=== PATIENT | female | born 1965 | race African-American/Black ===

== ENCOUNTER 2017-05-01 21:20 | Observation (INO) | payer BC ==
[2017-05-01] MEDS ORDERED: Adenosine 6 MG/2 ML VIAL ONE ×3 (21:32→21:41)
[2017-05-01 22:03] LABS: #Basophils 0.1 thou/uL (0.0-0.2); #Eosinphils 0.2 thou/uL (0.0-0.7); #Lymphocytes 4.6 thou/uL (1.20-3.40); #Monocytes 0.8 thou/uL (0.11-0.59); #Neutrophils 4.8 thou/uL (1.40-6.50); %Basophils 1.1 % (0.0-1.0); %Eosinophils 1.9 % (0.0-10.0); %Lymphocytes 43.9 % (21.0-51.0); %Monocytes 7.2 % (0.0-10.0); %Neutrophils 45.8 % (42.0-75.0); Hemoglobin 14.8 g/dL (12.0-16.0); Mean Corpuscular HGB CONC 34.1 g/dL (32.0-36.0); Mean Corpuscular Hemoglobin 32.7 pg (27.0-31.0); Mean Corpuscular Volume 95.8 fl (81.0-99.0); Mean Platelet Volume 7.9 fL (7.4-10.4); Platelet Count 212 thou/uL (130-400); RBC Distribution Width 12.8 % (11.5-14.5); Red Blood Cell (RBC) Count 4.53 mill/uL (4.20-5.40); White Blood Cell (WBC) Count 10.5 thou/uL (4.8-10.8)
--- NOTE | 2017-05-01 22:05 | RAD ---
PORTABLE UPRIGHT FRONTAL CHEST RADIOGRAPH 05/01/17 COMPARISON: 11/11/15. HISTORY: Chest pain, arrhythmia. FINDINGS: No pneumothorax or pleural fluid. No focal consolidation or alveolar edema. Heart and mediastinal contours are unremarkable. There is mild elevation of the left hemidiaphragm. IMPRESSION: No acute findings. POS: [facility]
[2017-05-01 22:24] LABS: ALT (SGPT) 19 U/L (8-55); AST (SGOT) 27 U/L (5-34); Albumin 4.5 g/dL (3.5-5.0); Alkaline Phosphatase 89 U/L (40-150); Anion Gap 16 mmol/L (10-20); BUN (Urea Nitrogen) 24 mg/dL (9.8-20.1); Bilirubin, Total 0.3 mg/dL (0.2-1.2); CK (CPK) 91 U/L (29-168); Calc. Creatinine Clearance 0 mL/min (70-130); Calcium 9.8 mg/dL (7.8-10.44); Carbon Dioxide 24 mmol/L (22-29); Chloride 102 mmol/L (98-107); Estimated GFR-MDRD 84; Globulin 3.4 g/dL (2.4-3.5); Glucose 124 mg/dL (70-105); Protein, Total 7.9 g/dL (6.0-8.3); Sodium 139 mmol/L (136-145)
[2017-05-01 22:27] LABS: CKMB 1.6 ng/mL (0-6.6); Troponin I Less than 0.010 ng/mL (< 0.028)
[2017-05-01 22:30] LABS: Potassium 2.9 mmol/L (3.5-5.1)
[2017-05-01] MEDS ORDERED: Potassium Chloride 20 MEQ TAB ONE (23:19)
[2017-05-02] MEDS ORDERED: Ondansetron HCl/PF 4 MG/2 ML Vial IVP PRN ×2 (00:32→08:12)
[2017-05-02] MEDS ORDERED: Ondansetron ODT 4 MG TAB SL PRN (00:32)
[2017-05-02 00:52] VITALS: BMI 29.8
[2017-05-02 01:15] LABS: Troponin I 0.037 ng/mL (< 0.028)
[2017-05-02 04:29] LABS: Troponin I 0.025 ng/mL (< 0.028)
[2017-05-02] MEDS ORDERED: hydrALAZINE 20 MG/ML VIAL SLOW IVP PRN (08:12)
[2017-05-02] MEDS ORDERED: Dextrose 5% in Water 1,000 ML IV PRN (08:12)
[2017-05-02] MEDS ORDERED: Ondansetron ODT 4 MG TAB PO PRN (08:12)
[2017-05-02] MEDS ORDERED: Dextrose 50% Abboject 50 ML SYRINGE SLOW IVP PRN (08:12)
[2017-05-02] MEDS ORDERED: cloNIDine 0.1 MG TAB PO PRN (08:12)
[2017-05-02] MEDS ORDERED: HumaLOG 300 UNITS/3 ML VIAL SC PRN ×2 (08:12)
[2017-05-02] MEDS ORDERED: Acetaminophen 500 MG TAB PO PRN (08:12)
--- NOTE | 2017-05-02 08:45 | HP ---
DATE OF ADMISSION: 05/02/2017 PRIMARY CARE PHYSICIAN: Anthony Sherman D.O. CHIEF COMPLAINT: Palpitations. HISTORY OF PRESENT ILLNESS: This is a 51-year-old -Nigerien female who presented to [facility] Emergency Department complaining of palpitations which began yesterday mary smith on 05/01/2017. The patient states she was lying in her bed when she turned over and felt her hear t racing. The patient states she has a significant history of supraventricular tachycardia requiring approximately 5 interventions including IV rate controlling measures given at [facility] as well as at [facility] over the last several years. The patient has been placed o n metoprolol which she states she has been taking consistently. The patient states that she had seen Dr. Rao in the past regarding possible ablation; however, has not proceeded with this therapy. The patient denied any associated chest pain, but some shortness of breath. The patient denies any increased caffeine exposure, recent trauma, injury or fever. The patient does admit to smoking up t o a half a pack of cigarettes daily over the last 20 years. In the emergency room, patient was noted with heart rates in the 160s requiring 2 doses of adenosine. The patient converted back to regular sinus mechanism with this therapy. Patient also received IV fluids, aspirin 324 mg and potassium sup plementation after initial potassium level was noted at 2.9. The patient states she has undergone a cardiac stress testing in the last several years and this was interpreted as negative. The patient d oes states she was recently taken off her metformin for diabetes as her glucose trend had improved. The patient denies any other change to her chronic medication regimen. PAST MEDICAL HISTORY: 1. Recurrent supraventricular tachycardia treated with beta blockers. 2. Tobacco abuse. 3. Diabetes mellitus type 2 on oral hypoglycemics. PAST SURGICAL HISTORY: 1. Status post breast reduction. 2. Status post abdominoplasty. 3. Status post bilateral tubal ligation. CURRENT MEDICATIONS: 1. Metoprolol succinate 50 mg 1 tab p.o. daily. 2. Lisinopril/hydrochlorothiazide 20/25 mg 1 tab p.o. daily. ALLERGIES: No known drug allergies. FAMILY HISTORY: Positive for hypertension and diabetes. SOCIAL HISTORY: Patient resides in [place], [place]. Employed at [employer]. Smokes up to half a pack of cigarettes daily x20 years. Occasional alcohol use. No illicit drug use. REVIEW OF SYSTEMS: The following complete review of systems was negative, unless otherwise mentioned in the HPI or below: Constitutional: Weight loss or gain, ability to conduct usual activities. Skin: Rash, itching. Eyes: Double vision, pain. ENT/Mouth: Nose bleeding, neck stiffness, pain, tenderness. Cardiovascular: Palpitations, dyspnea on exertion, orthopnea. Respiratory: Shortness of breath, wheezing, cough, hemoptysis, fever or night sweats. Gastrointestinal: Poor appetite, abdominal pain, heartburn, nausea, vomiting, constipation, or diarr hea. Genitourinary: Urgency, frequency, dysuria, nocturia. Musculoskeletal: Pain, swelling. Neurologic/Psychiatric: Anxiety, depression. Allergy/Immunologic: Skin rash, bleeding tendency. Otherwise negative except as stated per HPI. PHYSICAL EXAMINATION: VITAL SIGNS: On admission, blood pressure 122/80, pulse 67, respiratory rate is 16, temperature 97.2 degrees Fahrenheit, and O2 saturation 99% on room air. GENERAL APPEARANCE: This is a 51-year-old -Nigerien female, alert and oriented x3. Pleasant, smiling, in no acute distress. HEENT: Pupils are equal, round, and reactive to light and accommodation. Extraocular muscles are in tact. No scleral icterus, no conjunctival injection. Nares patent. OP is clear. Teeth in good rep air. NECK: Supple, no cervical adenopathy, no thyromegaly, no carotid bruits, no JVD appreciated. Cervic al spine with full active and passive range of motion. No meningeal signs appreciated. CHEST: Lungs are clear to auscultation bilaterally. CARDIOVASCULAR: S1 and S2 without noted murmur. ABDOMEN: Rounded, soft, nontender, nondistended. Bowel sounds are positive in all four quadrants. There is no hepatosplenomegaly, no abdominal bruits, no rebound or guarding appreciated. EXTREMITIES: Warm and dry with fair turgor. No clubbing, cyanosis or asymmetric edema appreciated. Pulses palpable distally at the dorsalis pedis, posterior tibial, and popliteal arteries bilaterally . Capillary refill less than 2 seconds. NEUROLOGIC: Cranial nerves II-XII are grossly intact. No focal or lateralizing signs appreciated. PERTINENT LABORATORY DATA AND X-RAY FINDINGS: Sodium 139, potassium 2.9, chloride 102, CO2 24, BUN 2 4, creatinine 0.86, estimated GFR of 84, glucose 124, calcium 9.8. LFTs within normal limits. Tropo dee I ranged between 0.010-0.037. BNP 125. CBC within normal limits. Portable chest x-ray dated showed no acute cardiopulmonary process. EKG noted 05/01/2017 showed supraventricular tachy cardia with heart rates in the 160s. T-wave abnormality noted in leads V3 through V6 as well as infe rior leads II, III, and AVF. ASSESSMENT AND PLAN: 1. Recurrent supraventricular tachycardia. The patient will be observed on the telemetry unit. We will consult Cardiology Service for further evaluation and consideration of potential ablation. The patient may need additional evaluation to rule out underlying ischemic influence with history of hype rtension and diabetes mellitus. Currently, rate controlled. Resume metoprolol 50 mg p.o. daily. Co ntinue telemetry monitoring. Check magnesium and TSH level. Repeat potassium level. Continue aspir in 81 mg daily. 2. Hypokalemia. Potassium chloride replaced in the Emergency Room. We will repeat potassium level currently. 3. Hypertension. Resume home antihypertensive regimen and monitor clinical response. 4. Diabetes mellitus type 2. Insulin sliding scale for reflexive coverage. ADA diet when taking p. o. Accu-Cheks a.c. and at bedtime. 5. Tobacco use. We will offer smoking cessation resources prior to discharge. 6. Prophylaxis. Sequential compression devices while in bed. Pepcid 20 mg p.o. b.i.d. 7. Code status is FULL. Surrogate medical decision maker is the patient's mother.
[2017-05-02] MEDS ORDERED: Aspirin 325 MG TAB PO SCH (09:00)
[2017-05-02 09:02] LABS: Anion Gap 10 mmol/L (10-20); BUN (Urea Nitrogen) 20 mg/dL (9.8-20.1); Calc. Creatinine Clearance 116 mL/min (70-130); Calcium 8.9 mg/dL (7.8-10.44); Carbon Dioxide 28 mmol/L (22-29); Chloride 107 mmol/L (98-107); Estimated GFR-MDRD Greater than 90; Glucose 98 mg/dL (70-105); Potassium 3.8 mmol/L (3.5-5.1); Sodium 141 mmol/L (136-145)
[2017-05-02] MEDS: Lisinopril/Hydrochlorothiazide 20/25 mg Tablet PO SCH (09:09)
[2017-05-02] MEDS: Famotidine 20 MG TAB PO SCH ×2 (09:09→19:40)
[2017-05-02] MEDS: Aspirin 81 mg Enteric Coated Tablet PO SCH (09:13)
--- NOTE | 2017-05-02 19:43 | CON ---
DATE OF CONSULTATION: 05/02/2017 REASON FOR CONSULTATION: SVT. CONSULTING PHYSICIAN: Adilson Mott D.O. CHIEF COMPLAINT: Palpitations. HISTORY OF PRESENT ILLNESS: Ms. Anderson is a very pleasant 51-year-old -[place]oc[place] female who pre sented to [facility] with palpitations which she began to experience on 05/01 at night. She does report that she has a history significant for SVT and has been taking metoprolol fo r years and has previously been evaluated and considered for ablation, but had previously chosen not to pursue ablative therapy. She has previously been followed by Dr. Rao. During her SVT episo antonina, she denies any chest pain, but does endorse some mild shortness of breath. She has been smoking half a pack a day for past 20 years. She denies any significant caffeine intake, recent illness or trauma. While in the emergency room, she was given metoprolol and 2 doses of adenosine at which poin t she converted back to normal sinus rhythm. Her SVT was in the 160-170 range. She reports that she has had a normal cardiac stress test in the past few years and has history of type 2 diabetes, previ ously treated with metformin. PAST MEDICAL HISTORY: 1. SVT, previously treated with beta blockers alone. 2. Tobacco habituation, [id number] history. 3. Type 2 diabetes, previously on metformin. PAST SURGICAL HISTORY: 1. Breast reduction surgery. 2. Abdominoplasty. 3. Bilateral tubal ligation. HOME MEDICATIONS: Include metoprolol succinate 50 mg 1 tab p.o. daily and lisinopril/hydrochlorothia zide combo 20/25 mg 1 tab p.o. daily. ALLERGIES: No known allergies. FAMILY HISTORY: Positive for hypertension and diabetes. SOCIAL HISTORY: Lives in [place], [place]. Employed at [employer]. A 10 pack year history of ciga rette use. Occasional alcohol intake and negative for illicit drug abuse. REVIEW OF SYSTEMS: Constitutional: Negative for fevers, chills, weight loss, malaise or recent weight fluctuations. HE ENT: Negative for double vision, speech changes, vision changes or difficulty swallowing. Cardiovas cular: Positive for palpitations and heart racing. Negative for chest pain, pressure or swelling of the extremities. Respiratory: Positive for shortness of breath with heart racing. Otherwise negat courtney for respiratory complaints including dyspnea on exertion and wheezing, recent cough, or bloody sp utum. Gastrointestinal: Negative for nausea, vomiting, diarrhea, blood in stool. Genitourinary: N egative for urgency, frequency, hesitancy or frequent nighttime urination. LABORATORY DATA: A full 12 point review of systems is conducted and is negative except as listed abo ve in the review of systems and per HPI. PHYSICAL EXAMINATION: VITAL SIGNS: Most recent vital signs, 98.3 degrees, pulse 66, respirations 16, oxygen saturation 96, blood pressure 114/72. GENERAL: Ms. Anderson is a well-appearing, well-groomed and obese -Moroccan female in no acute d istress. HEENT: She is normocephalic. Her sclerae is anicteric and EOMs intact. Her oral mucosa is moist an d pink with adequate dentition. NECK: Supple, without jugular venous distention. Her thyroid is nonpalpable. CARDIAC: Heart rate is regularly irregular. EXTREMITIES: Warm and dry to touch without clubbing, cyanosis or edema. ABDOMEN: Revealed an obese abdomen that is soft and nontender. Hepatojugular reflex is negative. T here are no palpable masses and positive bowel tones throughout. NEUROLOGIC: Cranial nerves II-XII are grossly intact and the exam is nonfocal. Gait was not assesse d as the patient was lying recombinant in bed. DATABASE: Labs from 05/01, WBC 10.5, hemoglobin 14.8, hematocrit 43.4, platelet count 212. Chemistr y from 05/02, sodium 141, potassium 3.8, chloride 107, carbon dioxide 28, BUN 20, creatinine 0.74, ca lcium 8.9. CURRENT MEDICATIONS: Include aspirin 81 mg daily, Pepcid 20 mg b.i.d., lisinopril/hydrochlorothiazid e 20/25 p.o. daily, insulin sliding scale, metoprolol succinate 50 mg daily. ELECTROCARDIOGRAM: Current telemetry review reveals sinus rhythm and sinus bradycardia ranging betwe en 55-65 in general. A 12 lead EKG on presentation to the emergency room reveals what appears to be AVNRT at a rate of 150-170 beats per minute. ASSESSMENT AND PLAN: 1. Recurrent supraventricular tachycardia. The patient appears to have atrioventricular yossi reent ry tachycardia and has agreed to undergo ablation tomorrow. Risks and benefits were discussed with t he patient. The risks include hematoma and damage to blood vessels, perforation of the heart, need f or permanent pacemaker and possible need for emergent surgery for repair or additional chest tube delano cement. The patient agrees to these risks, and is willing to proceed. Currently, the patient is abhishek ntaining a sinus mechanism and has not had recurrence of her arrhythmia with her metoprolol 50 mg aurora ly and patient will undergo EP study and ablation tomorrow. 2. Hypokalemia. Potassium on presentation to the emergency room was 2.9, which has since corrected at 3.8. Recommend continued replacement to keep potassium at least 4.0. Thank for allowing us to participate in the care of this patient.
[2017-05-03 04:44] LABS: Anion Gap 10 mmol/L (10-20); BUN (Urea Nitrogen) 17 mg/dL (9.8-20.1); Calc. Creatinine Clearance 104 mL/min (70-130); Calcium 9.2 mg/dL (7.8-10.44); Carbon Dioxide 29 mmol/L (22-29); Chloride 104 mmol/L (98-107); Estimated GFR-MDRD 90; Glucose 104 mg/dL (70-105); Potassium 3.8 mmol/L (3.5-5.1); Sodium 139 mmol/L (136-145)
[2017-05-03 05:48] LABS: Eosinophils 2 % (0-10); Hemoglobin 13.3 g/dL (12.0-16.0); Lymphocytes 42 % (21-51); MDiff Complete? YES; Mean Corpuscular HGB CONC 33.4 g/dL (32.0-36.0); Mean Corpuscular Hemoglobin 32.4 pg (27.0-31.0); Mean Corpuscular Volume 97.1 fl (81.0-99.0); Mean Platelet Volume 7.4 fL (7.4-10.4); Monocytes 5 % (0-10); Neutrophil 51 % (42-75); PLT Morphology Comment Appears Adequate; Platelet Count 188 thou/uL (130-400); RBC Distribution Width 12.8 % (11.5-14.5); RBC Morphology Normal; White Blood Cell (WBC) Count 7.2 thou/uL (4.8-10.8)
[2017-05-03] MEDS: Famotidine 20 MG TAB PO SCH (07:54)
[2017-05-03] MEDS: Aspirin 81 mg Enteric Coated Tablet PO SCH (07:54)
[2017-05-03] MEDS: Lisinopril/Hydrochlorothiazide 20/25 mg Tablet PO SCH (07:54)
[2017-05-03 12:19] VITALS: BP 116/76; TEMP 98.2
[2017-05-03] MEDS ORDERED: Heparin 10,000 UNITS/1 ML VIAL ONE (14:41)
[2017-05-03] MEDS ORDERED: Lidocaine 1% (PF) 30 ML VIAL ONE (14:41)
--- NOTE | 2017-05-03 17:14 | PRG ---
ELECTROPHYSIOLOGY FOLLOWUP NOTE DATE OF SERVICE: 05/03/2017 SUBJECTIVE: Ms. Anderson seems to be doing well, no recurrent palpitations noted. She has no recurrent arrhythmias. No fever, chills or cough. No stroke-like symptoms. No dizziness or loss of consciousness. Rest of 12-point system otherwise unremarkable. OBJECTIVE DATA: VITAL SIGNS: Blood pressure is 116/76, heart rate 54, respirations 16 and temperature 98.2 degrees Fahrenheit. GENERAL: Alert and oriented woman in no apparent distress. NECK: Supple. Jugular veins not distended. CHEST: Coarse. No crackles. CARDIOVASCULAR: Heart sounds are regular to rate and rhythm. No murmur or gallop. ABDOMEN: Benign. Bowel sounds positive. EXTREMITIES: Lower extremities without edema, clubbing or cyanosis. DATABASE: Telemetry strips reveals sinus rhythm and sinus bradycardia. ASSESSMENT AND PLAN: Ms. Anderson is a pleasant 51-year-old woman with history of paroxysmal supraventricular tachycardias. She will likely need to undergo an EP study and ablation procedure. Unfortunately, the schedule is full for today and tomorrow. For this reason, we will attempt to bring her back as an outpatient. In the meantime, continue beta blockers. Thank you for allowing me to participate in the care of this patient. COLT
--- NOTE | 2017-05-03 21:24 | DIS ---
DATE OF ADMISSION: 05/01/2017 DATE OF DISCHARGE: 05/03/2017 DISCHARGE DIAGNOSES: 1. Supraventricular tachycardia, recurrent. 2. Hypokalemia, resolved. 3. Tobacco use. 4. Diabetes mellitus, type 2, stable. 5. Hypertension, stable. CONSULTATIONS: Dr. Cervantes with Electrophysiology Service. PERTINENT LABORATORY AND X-RAY FINDINGS: Potassium ranged between 2.9-3.8. LFTs within normal limit s. Troponin I ranged between 0.010 to 0.037. BNP 125, TSH 1.62. Magnesium level 2.0. CBC within n ormal limits. A 2D transthoracic echocardiogram dated 05/02/2017 showed ejection fraction of 55% to 60%. Mild mitral and tricuspid valve regurgitation. HOSPITAL COURSE: The patient was placed in observation status on the telemetry unit after initially presenting with palpitations and supraventricular tachycardia with heart rates in the 160s, requiring IV adenosine x2 doses, intravenous fluids and correction of hypokalemia. The patient was evaluated by the Electrophysiology Service with recommendations to pursue ablation therapy; however, was unable to complete the testing due to volume of patient's requiring anesthesia and needing to reschedule at a later date. The patient was noted with sinus mechanism with heart rates in the 60s through the re mainder of the hospital course and overall remained clinically stable. The patient is ready for disc harge on 05/03/2017. DISCHARGE MEDICATIONS: 1. Metoprolol 50 mg 1 tab p.o. daily. 2. Lisinopril/hydrochlorothiazide 20/25 mg 1 tab p.o. daily. 3. Enteric coated aspirin 81 mg 1 tab p.o. daily. FOLLOWUP: The patient may follow up with her primary care provider, Dr. Anthony Sherman within 7 day s. The patient may follow up with Dr. Cervantes for outpatient cardiac ablation on 05/07/2017. CONDITION ON DISCHARGE: Stable. ACTIVITY: Ad jason. DIET: ADA and heart healthy. CODE STATUS: FULL. DISPOSITION: Home on 05/03/2017.
--- NOTE | 2017-05-05 19:36 | EKG ---
Test Reason : Blood Pressure : / mmHG Vent. Rate : 106 BPM Atrial Rate : 106 BPM P-R Int : 128 ms QRS Dur : 090 ms QT Int : 358 ms P-R-T Axes : 072 056 030 degrees QTc Int : 475 ms Sinus tachycardia Possible Left atrial enlargement Abnormal ECG Confirmed by EMELI GREWAL, THO Miranda ([id number]), offline editor FAVIOLA FOSS ([id number]) on 05/05/2017 7:36:46 PM Referred By: EMELI Confirmed By:THO SAINZ MD
--- NOTE | 2017-05-05 19:40 | EKG ---
Test Reason : POSS SVT Blood Pressure : / mmHG Vent. Rate : 160 BPM Atrial Rate : 160 BPM P-R Int : 184 ms QRS Dur : 086 ms QT Int : 302 ms P-R-T Axes : 053 055 -50 degrees QTc Int : 492 ms Supraventricular tachycardia Marked ST abnormality, possible inferior subendocardial injury Abnormal ECG Confirmed by EMELI GREWAL, THO Miranda ([id number]), communications editor FAVIOLA FOSS ([id number]) on 05/05/2017 7:40:39 PM Referred By: CHANELLE SAINZ Confirmed By:THO SAINZ MD
== END 2017-05-03 17:21 | disposition home or self-care (01) ==
LOC: ERS 21:20 → 2SW 22:00
PROVIDERS: ADMIT Internal Medicine Infectious Disease; ATTEND Internal Medicine Infectious Disease
DX: I47.1 Supraventricular tachycardia (principal); E87.6 Hypokalemia; E11.9 Type 2 diabetes mellitus without complications; I10 Essential (primary) hypertension; F17.200 Nicotine dependence, unspecified, uncomplicated; Z79.899 Other long term (current) drug therapy; Z98.890 Other specified postprocedural states; Z82.49 Family history of ischemic heart disease and other diseases of the circulatory system
CPT/HCPCS: 36415; 36416; 71045; 80048; 80053; 82553; 83735; 83880; 84443; 84484; 85007; 85025; 85027; 93005; 93306; 96361; 96374; A4216; G0378; J0153; J1644; J2001; J2997

== ENCOUNTER 2017-08-04 22:56 | Emergency (ER) | payer BC ==
[2017-08-04] MEDS ORDERED: Adenosine 6 MG/2 ML VIAL ONE (23:12)
[2017-08-04 23:21] LABS: #Basophils 0.2 thou/uL (0.0-0.2); #Eosinphils 0.2 thou/uL (0.0-0.7); #Lymphocytes 4.1 thou/uL (1.20-3.40); #Monocytes 0.8 thou/uL (0.11-0.59); %Basophils 1.7 % (0.0-1.0); %Eosinophils 1.9 % (0.0-10.0); %Lymphocytes 40.1 % (21.0-51.0); %Monocytes 7.5 % (0.0-10.0); %Neutrophils 48.8 % (42.0-75.0); Hemoglobin 14.5 g/dL (12.0-16.0); Mean Corpuscular HGB CONC 34.3 g/dL (32.0-36.0); Mean Corpuscular Hemoglobin 32.9 pg (27.0-31.0); Mean Platelet Volume 7.7 fL (7.4-10.4); Platelet Count 198 thou/uL (130-400); RBC Distribution Width 12.5 % (11.5-14.5); White Blood Cell (WBC) Count 10.3 thou/uL (4.8-10.8)
[2017-08-04 23:41] LABS: ALT (SGPT) 42 U/L (8-55); AST (SGOT) 64 U/L (5-34); Albumin 4.4 g/dL (3.5-5.0); Alkaline Phosphatase 91 U/L (40-150); Anion Gap 12 mmol/L (10-20); BUN (Urea Nitrogen) 23 mg/dL (9.8-20.1); Bilirubin, Total 0.6 mg/dL (0.2-1.2); CK (CPK) 83 U/L (29-168); Calc. Creatinine Clearance 0 mL/min (70-130); Calcium 9.5 mg/dL (7.8-10.44); Carbon Dioxide 27 mmol/L (22-29); Chloride 104 mmol/L (98-107); Estimated GFR-MDRD 73; Glucose 144 mg/dL (70-105); Lipase 49 U/L (8-78); Potassium 3.5 mmol/L (3.5-5.1); Protein, Total 7.4 g/dL (6.0-8.3); Sodium 139 mmol/L (136-145)
[2017-08-04 23:45] LABS: CKMB 0.9 ng/mL (0-6.6); Troponin I Less than 0.010 ng/mL (< 0.028)
--- NOTE | 2017-08-04 23:50 | RAD ---
CHEST FRONTAL VIEW: INDICATIONS: Chest pain. COMPARISON: 05/01/2017 FINDINGS: The lungs are clear. There is no effusion or pneumothorax. The cardiac silhouette is stable IMPRESSION: No focal consolidation. POS: [facility]
== END 2017-08-05 00:53 | disposition home or self-care (01) ==
LOC: ERS 22:56
DX: I47.1 Supraventricular tachycardia (principal); I10 Essential (primary) hypertension; Z71.6 Tobacco abuse counseling; F17.210 Nicotine dependence, cigarettes, uncomplicated; E11.9 Type 2 diabetes mellitus without complications; Z79.82 Long term (current) use of aspirin; Z79.899 Other long term (current) drug therapy
CPT/HCPCS: 71045; 80053; 82553; 83690; 84484; 85025; 93005; 94760; 99406; J0153

== ENCOUNTER 2017-08-15 20:56 | Emergency (ER) | payer BC ==
[2017-08-15] MEDS ORDERED: Adenosine 6 MG/2 ML VIAL ONE ×2 (21:07→21:13)
[2017-08-15 21:24] LABS: #Basophils 0.1 thou/uL (0.0-0.2); #Eosinphils 0.2 thou/uL (0.0-0.7); #Lymphocytes 4.9 thou/uL (1.20-3.40); #Monocytes 0.7 thou/uL (0.11-0.59); #Neutrophils 5.6 thou/uL (1.40-6.50); %Basophils 0.6 % (0.0-1.0); %Eosinophils 1.6 % (0.0-10.0); %Lymphocytes 42.6 % (21.0-51.0); %Monocytes 6.2 % (0.0-10.0); %Neutrophils 48.9 % (42.0-75.0); Hemoglobin 15.3 g/dL (12.0-16.0); Mean Corpuscular HGB CONC 34.6 g/dL (32.0-36.0); Mean Corpuscular Hemoglobin 33.2 pg (27.0-31.0); Mean Corpuscular Volume 96.1 fl (81.0-99.0); Mean Platelet Volume 8.4 fL (7.4-10.4); Platelet Count 218 thou/uL (130-400); RBC Distribution Width 12.6 % (11.5-14.5); Red Blood Cell (RBC) Count 4.61 mill/uL (4.20-5.40); White Blood Cell (WBC) Count 11.4 thou/uL (4.8-10.8)
[2017-08-15 21:48] LABS: CKMB 0.8 ng/mL (0-6.6); Troponin I Less than 0.010 ng/mL (< 0.028)
[2017-08-15 21:50] LABS: ALT (SGPT) 23 U/L (8-55); AST (SGOT) 30 U/L (5-34); Albumin 4.5 g/dL (3.5-5.0); Alkaline Phosphatase 88 U/L (40-150); Anion Gap 12 mmol/L (10-20); BUN (Urea Nitrogen) 26 mg/dL (9.8-20.1); Bilirubin, Total 0.4 mg/dL (0.2-1.2); CK (CPK) 74 U/L (29-168); Calc. Creatinine Clearance 0 mL/min (70-130); Calcium 9.6 mg/dL (7.8-10.44); Carbon Dioxide 27 mmol/L (22-29); Chloride 103 mmol/L (98-107); Estimated GFR-MDRD 66; Globulin 3.8 g/dL (2.4-3.5); Glucose 203 mg/dL (70-105); Potassium 3.9 mmol/L (3.5-5.1); Protein, Total 8.3 g/dL (6.0-8.3); Sodium 138 mmol/L (136-145)
== END 2017-08-15 22:28 | disposition home or self-care (01) ==
LOC: ERS 20:56
DX: I47.1 Supraventricular tachycardia (principal); E11.9 Type 2 diabetes mellitus without complications; I10 Essential (primary) hypertension; F17.210 Nicotine dependence, cigarettes, uncomplicated; Z79.82 Long term (current) use of aspirin; Z79.899 Other long term (current) drug therapy
CPT/HCPCS: 36415; 80053; 82550; 82553; 84484; 85025; 92960; 93005; J0153

== ENCOUNTER 2017-11-09 18:33 | Emergency (ER) | payer BC ==
[2017-11-09 19:11] LABS: #Basophils 0.1 thou/uL (0.0-0.2); #Eosinphils 0.1 thou/uL (0.0-0.7); #Lymphocytes 3.5 thou/uL (1.20-3.40); #Monocytes 0.8 thou/uL (0.11-0.59); #Neutrophils 5.1 thou/uL (1.40-6.50); %Eosinophils 1.5 % (0.0-10.0); %Lymphocytes 36.5 % (21.0-51.0); %Monocytes 8.1 % (0.0-10.0); %Neutrophils 52.9 % (42.0-75.0); Mean Corpuscular Hemoglobin 32.6 pg (27.0-31.0); Mean Corpuscular Volume 95.9 fL (78.0-98.0); Mean Platelet Volume 8.3 fL (7.4-10.4); Platelet Count 170 thou/uL (130-400); RBC Distribution Width 12.5 % (11.5-14.5); Red Blood Cell (RBC) Count 3.99 mill/uL (4.20-5.40); White Blood Cell (WBC) Count 9.7 thou/uL (4.8-10.8)
[2017-11-09 19:33] LABS: ALT (SGPT) 31 U/L (8-55); AST (SGOT) 46 U/L (5-34); Albumin 4.3 g/dL (3.5-5.0); Alkaline Phosphatase 81 U/L (40-150); Anion Gap 10 mmol/L (10-20); BUN (Urea Nitrogen) 14 mg/dL (9.8-20.1); Bilirubin, Total 0.5 mg/dL (0.2-1.2); Calc. Creatinine Clearance 0 mL/min (70-130); Calcium 9.4 mg/dL (7.8-10.44); Carbon Dioxide 23 mmol/L (22-29); Chloride 109 mmol/L (98-107); Estimated GFR-MDRD 84; Glucose 104 mg/dL (70-105); Potassium 3.1 mmol/L (3.5-5.1); Protein, Total 7.3 g/dL (6.0-8.3); Sodium 139 mmol/L (136-145)
[2017-11-09 19:53] LABS: CKMB 1.5 ng/mL (0-6.6); Troponin I Less than 0.010 ng/mL (< 0.028)
--- NOTE | 2017-11-09 20:26 | RAD ---
RADIOGRAPH CHEST 1 VIEW: 11/09/17 HISTORY: 52-year-old female with dyspnea and tachycardia. FINDINGS: There are no air space densities, pulmonary edema, pneumothorax, or cardiomegaly. The lateral costop hrenic angles are sharp. IMPRESSION: No acute cardiopulmonary findings. rebecca [] POS: [facility]
[2017-11-09 20:52] LABS: Bilirubin Negative (Negative); Blood, Urine Negative (Negative); Clarity CLEAR (Clear); Glucose, Urine (Dipstick) Negative (Negative); Leukocyte Negative (Negative); Nitrite Negative (Negative); Protein, Urine (Dipstick) Negative (Neg-Trace); Specific Gravity, Urine 1.004 (1.002-1.036); Urobilinogen 0.2 mg/dL (0.2-1.0)
== END 2017-11-09 21:28 | disposition home or self-care (01) ==
LOC: ERS 18:33
DX: R00.2 Palpitations (principal); R00.0 Tachycardia, unspecified; E11.9 Type 2 diabetes mellitus without complications; I10 Essential (primary) hypertension; F17.210 Nicotine dependence, cigarettes, uncomplicated
CPT/HCPCS: 71045; 80053; 81003; 82553; 83735; 84443; 84484; 85025; 93005

== ENCOUNTER 2018-07-08 13:51 | Emergency (ER) | payer BC ==
[2018-07-08] MEDS ORDERED: Adenosine 6 MG/2 ML VIAL ONE (14:16)
[2018-07-08 14:31] LABS: #Basophils 0.1 thou/uL (0.0-0.2); #Eosinphils 0.1 thou/uL (0.0-0.7); #Lymphocytes 3.4 thou/uL (1.20-3.40); #Monocytes 0.8 thou/uL (0.11-0.59); #Neutrophils 6.2 thou/uL (1.40-6.50); %Basophils 1.3 % (0.0-1.0); %Lymphocytes 31.7 % (21.0-51.0); %Monocytes 7.4 % (0.0-10.0); %Neutrophils 58.6 % (42.0-75.0); Mean Corpuscular HGB CONC 32.5 g/dL (32.0-36.0); Mean Corpuscular Hemoglobin 31.3 pg (27.0-31.0); Mean Corpuscular Volume 96.4 fL (78.0-98.0); Mean Platelet Volume 8.3 fL (7.4-10.4); Platelet Count 203 thou/uL (130-400); RBC Distribution Width 12.8 % (11.5-14.5); Red Blood Cell (RBC) Count 4.47 mill/uL (4.20-5.40); White Blood Cell (WBC) Count 10.6 thou/uL (4.8-10.8)
[2018-07-08 14:56] LABS: ALT (SGPT) 18 U/L (8-55); AST (SGOT) 26 U/L (5-34); Albumin 4.5 g/dL (3.5-5.0); Alkaline Phosphatase 94 U/L (40-150); Anion Gap 13 mmol/L (10-20); BUN (Urea Nitrogen) 17 mg/dL (9.8-20.1); Bilirubin, Total 0.6 mg/dL (0.2-1.2); Calc. Creatinine Clearance 0 mL/min (70-130); Calcium 9.8 mg/dL (7.8-10.44); Carbon Dioxide 24 mmol/L (22-29); Chloride 107 mmol/L (98-107); Estimated GFR-MDRD 68; Glucose 107 mg/dL (70-105); Potassium 3.9 mmol/L (3.5-5.1); Protein, Total 7.5 g/dL (6.0-8.3); Sodium 140 mmol/L (136-145)
--- NOTE | 2018-07-08 15:22 | RAD ---
PORTABLE CHEST: Date: 07/08/18 PROVIDED CLINICAL HISTORY: Chest tightness. FINDINGS: Comparison with 11/09/17. Cardiac and mediastinal silhouette is within normal limits. Cutaneous pacing pad overlies the right l ower chest and somewhat obscures detail. There is no focal consolidation, pleural fluid, or pneumotho rax apparent. IMPRESSION: No evidence for acute cardiopulmonary process. POS: [facility]
== END 2018-07-08 15:57 | disposition home or self-care (01) ==
LOC: ERS 13:51
DX: R07.89 Other chest pain (principal); I10 Essential (primary) hypertension; I47.1 Supraventricular tachycardia; F17.210 Nicotine dependence, cigarettes, uncomplicated; Z79.899 Other long term (current) drug therapy; Z79.82 Long term (current) use of aspirin
CPT/HCPCS: 36415; 71045; 80053; 83880; 84484; 85025; 85379; 93005; 96361; 96374; J0153

== ENCOUNTER 2019-03-25 15:46 | Outpatient (CLI) | payer BC ==
--- NOTE | 2019-04-08 14:09 | MMO ---
Bilateral MAMMO Bilat Screen [facility] CLINICAL HISTORY: Patient is 53 years old and is seen for screening. The patient has the following family history of breast cancer: cousin female, at age 45. VIEWS: The views performed were: bilateral craniocaudal with tomosynthesis and bilateral mediolateral oblique with tomosynthesis. FILMS COMPARED: The present examination has been compared to a prior imaging study performed at [facility] on 12/21/2011. This study has been interpreted with the assistance of computer-aided detection. MAMMOGRAM FINDINGS: There are scattered fibroglandular densities. There are no suspicious masses, suspicious calcifications, or new areas of architectural distortion. IMPRESSION: THERE IS NO MAMMOGRAPHIC EVIDENCE OF MALIGNANCY. A ROUTINE FOLLOW-UP MAMMOGRAM IN 1 YEAR IS RECOMMENDED. THE RESULTS OF THIS EXAM WERE SENT TO THE PATIENT. ACR BI-RADS Category 1 - Negative MAMMOGRAPHY NOTE: 1. A negative mammogram report should not delay a biopsy if a dominant of clinically suspicious mass is present. 2. Approximately 10% to 15% of breast cancers are not detected by mammography. 3. Adenosis and dense breasts may obscure an underlying neoplasm. Reported by: MARCELA HANNON MD Electonically Signed: [id number]
== END 2019-03-25 15:47 | disposition home or self-care (01) ==
LOC: BICMAMMO 15:46
PROVIDERS: ATTEND Physician Assistant
DX: Z12.31 Encounter for screening mammogram for malignant neoplasm of breast (principal); Z80.3 Family history of malignant neoplasm of breast
CPT/HCPCS: 77063; 77067

== ENCOUNTER 2019-05-21 16:25 | Emergency (ER) | payer BC ==
[2019-05-21 17:15] LABS: #Basophils 0.1 thou/uL (0.0-0.2); #Eosinphils 0.3 thou/uL (0.0-0.7); #Lymphocytes 4.2 thou/uL (1.20-3.40); #Monocytes 0.7 thou/uL (0.11-0.59); #Neutrophils 4.8 thou/uL (1.40-6.50); %Basophils 0.8 % (0.0-1.0); %Eosinophils 2.7 % (0.0-10.0); %Monocytes 7.1 % (0.0-10.0); %Neutrophils 47.4 % (42.0-75.0); Hemoglobin 14.2 g/dL (12.0-16.0); Mean Corpuscular HGB CONC 34.3 g/dL (32.0-36.0); Mean Corpuscular Hemoglobin 31.6 pg (27.0-31.0); Mean Corpuscular Volume 92.1 fL (78.0-98.0); Mean Platelet Volume 7.9 fL (7.4-10.4); Platelet Count 204 thou/uL (130-400); RBC Distribution Width 12.9 % (11.5-14.5); Red Blood Cell (RBC) Count 4.48 mill/uL (4.20-5.40); White Blood Cell (WBC) Count 10.1 thou/uL (4.8-10.8)
--- NOTE | 2019-05-21 17:21 | RAD ---
XR Chest 1 View Portable History: Chest pain Comparison: Radiograph July 08, 2018 Findings: Lungs are clear. No pneumothorax. No effusion. No acute osseous abnormality. Impression: No acute intrathoracic abnormality.
[2019-05-21 17:38] LABS: ALT (SGPT) 30 U/L (8-55); AST (SGOT) 43 U/L (5-34); Albumin 4.6 g/dL (3.5-5.0); Alkaline Phosphatase 97 U/L (40-110); Anion Gap 14 mmol/L (10-20); BUN (Urea Nitrogen) 18 mg/dL (9.8-20.1); Bilirubin, Total 0.4 mg/dL (0.2-1.2); Calc. Creatinine Clearance 0 mL/min (70-130); Calcium 10.1 mg/dL (7.8-10.44); Carbon Dioxide 26 mmol/L (22-29); Chloride 102 mmol/L (98-107); Estimated GFR-MDRD 74; Globulin 3.3 g/dL (2.4-3.5); Glucose 89 mg/dL (70-105); Potassium 3.7 mmol/L (3.5-5.1); Protein, Total 7.9 g/dL (6.0-8.3); Sodium 138 mmol/L (136-145)
--- NOTE | 2019-05-24 15:38 | EKG ---
Test Reason : Blood Pressure : / mmHG Vent. Rate : 140 BPM Atrial Rate : 136 BPM P-R Int : 000 ms QRS Dur : 082 ms QT Int : 304 ms P-R-T Axes : 000 059 028 degrees QTc Int : 464 ms Supraventricular tachycardia vs atrial flutter Marked ST abnormality, possible inferior subendocardial injury Abnormal ECG Confirmed by CINDI WELCH M.D. ([id number]), mapping editor ALIDA OLIVAREZ ([id number]) on 05/24/2019 3:38:28 PM Referred By: Confirmed By:CINDI WELCH M.D.
== END 2019-05-21 18:37 | disposition home or self-care (01) ==
LOC: ERS 16:25
DX: I47.1 Supraventricular tachycardia (principal); I10 Essential (primary) hypertension; F17.210 Nicotine dependence, cigarettes, uncomplicated; Z79.899 Other long term (current) drug therapy; Z79.82 Long term (current) use of aspirin
CPT/HCPCS: 36415; 71045; 80053; 84443; 84484; 85025; 92960; 93005; 96374

== ENCOUNTER 2020-02-20 20:35 | Emergency (ER) | payer BC ==
[2020-02-20] MEDS ORDERED: Adenosine 6 MG/2 ML VIAL ONE ×2 (20:47→20:49)
[2020-02-20 22:13] LABS: #Basophils 0.1 thou/uL (0.0-0.2); #Eosinphils 0.2 thou/uL (0.0-0.7); #Lymphocytes 4.9 thou/uL (1.20-3.40); #Monocytes 0.7 thou/uL (0.11-0.59); #Neutrophils 4.3 thou/uL (1.40-6.50); %Basophils 1.4 % (0.0-1.0); %Eosinophils 1.8 % (0.0-10.0); %Monocytes 6.8 % (0.0-10.0); Hemoglobin 14.7 g/dL (12.0-16.0); Mean Corpuscular Hemoglobin 32.4 pg (27.0-31.0); Mean Corpuscular Volume 95.1 fL (78.0-98.0); Mean Platelet Volume 8.9 fL (7.4-10.4); Platelet Count 208 thou/uL (130-400); RBC Distribution Width 12.8 % (11.5-14.5); Red Blood Cell (RBC) Count 4.55 mill/uL (4.20-5.40); White Blood Cell (WBC) Count 10.2 thou/uL (4.8-10.8)
[2020-02-20 22:33] LABS: Anion Gap 16 mmol/L (10-20); BUN (Urea Nitrogen) 18 mg/dL (9.8-20.1); Calc. Creatinine Clearance 0 mL/min (70-130); Carbon Dioxide 25 mmol/L (22-29); Chloride 101 mmol/L (98-107); Potassium 3.3 mmol/L (3.5-5.1); Sodium 139 mmol/L (136-145)
[2020-02-20 22:34] LABS: ALT (SGPT) 17 U/L (8-55); AST (SGOT) 19 U/L (5-34); Albumin 4.4 g/dL (3.5-5.0); Alkaline Phosphatase 95 U/L (40-110); Bilirubin, Total 0.4 mg/dL (0.2-1.2); Calcium 9.3 mg/dL (7.8-10.44); Globulin 3.6 g/dL (2.4-3.5); Glucose 154 mg/dL (70-105)
== END 2020-02-20 23:34 | disposition home or self-care (01) ==
LOC: ERS 20:35
DX: I47.1 Supraventricular tachycardia (principal); E11.9 Type 2 diabetes mellitus without complications; I10 Essential (primary) hypertension; F17.210 Nicotine dependence, cigarettes, uncomplicated; Z79.82 Long term (current) use of aspirin; Z79.899 Other long term (current) drug therapy
CPT/HCPCS: 80053; 84484; 85025; 93005; 96374; J0153

== ENCOUNTER 2020-04-08 15:38 | Emergency (ER) | payer BC ==
[2020-04-08] MEDS ORDERED: Adenosine 6 MG/2 ML VIAL ONE (15:50)
[2020-04-08 16:02] LABS: #Basophils 0.1 thou/uL (0.0-0.2); #Eosinphils 0.2 thou/uL (0.0-0.7); #Lymphocytes 4.2 thou/uL (1.20-3.40); #Monocytes 0.9 thou/uL (0.11-0.59); #Neutrophils 5.8 thou/uL (1.40-6.50); %Lymphocytes 37.6 % (21.0-51.0); %Monocytes 7.9 % (0.0-10.0); %Neutrophils 51.4 % (42.0-75.0); Hemoglobin 14.4 g/dL (12.0-16.0); Mean Corpuscular HGB CONC 33.9 g/dL (32.0-36.0); Mean Corpuscular Hemoglobin 32.5 pg (27.0-31.0); Mean Corpuscular Volume 95.9 fL (78.0-98.0); Mean Platelet Volume 7.8 fL (7.4-10.4); Platelet Count 213 thou/uL (130-400); RBC Distribution Width 12.8 % (11.5-14.5); Red Blood Cell (RBC) Count 4.42 mill/uL (4.20-5.40); White Blood Cell (WBC) Count 11.3 thou/uL (4.8-10.8)
[2020-04-08 16:26] LABS: ALT (SGPT) 18 U/L (8-55); AST (SGOT) 21 U/L (5-34); Albumin 4.4 g/dL (3.5-5.0); Alkaline Phosphatase 96 U/L (40-110); Anion Gap 17 mmol/L (10-20); BUN (Urea Nitrogen) 25 mg/dL (9.8-20.1); Bilirubin, Total 0.7 mg/dL (0.2-1.2); Calc. Creatinine Clearance 0 mL/min (70-130); Calcium 9.6 mg/dL (7.8-10.44); Carbon Dioxide 25 mmol/L (22-29); Chloride 98 mmol/L (98-107); Globulin 3.5 g/dL (2.4-3.5); Glucose 131 mg/dL (70-105); Potassium 3.6 mmol/L (3.5-5.1); Protein, Total 7.9 g/dL (6.0-8.3); Sodium 136 mmol/L (136-145)
[2020-04-08 19:06] LABS: Troponin I 0.014 ng/mL (< 0.028)
== END 2020-04-08 19:44 | disposition home or self-care (01) ==
LOC: ERS 15:38
DX: I47.1 Supraventricular tachycardia (principal); E11.9 Type 2 diabetes mellitus without complications; I10 Essential (primary) hypertension; F17.210 Nicotine dependence, cigarettes, uncomplicated; Z79.899 Other long term (current) drug therapy; Z79.82 Long term (current) use of aspirin
CPT/HCPCS: 36415; 71045; 80053; 84484; 85025; 93005; 96374; J0153

== ENCOUNTER 2020-04-13 15:37 | Outpatient (CLI) | payer BC ==
--- NOTE | 2020-04-13 15:57 | MMO ---
Bilateral MAMMO Bilat Screen [facility] CLINICAL HISTORY: Patient is 54 years old and is seen for screening. The patient has the following family history of breast cancer: female cousin, at age 45. The patient has no personal history of cancer. The patient has a history of bilateral Breast reduction at age 34. VIEWS: The views performed were: bilateral craniocaudal with tomosynthesis and bilateral mediolateral oblique with tomosynthesis. FILMS COMPARED: The present examination has been compared to prior imaging studies performed at [facility] on 12/21/2011, and at [facility] on 03/25/2019. This study has been interpreted with the assistance of computer-aided detection. MAMMOGRAM FINDINGS: There are scattered fibroglandular densities. There are stable benign appearing calcifications seen in both breasts. There are no suspicious masses, suspicious calcifications, or new areas of architectural distortion. IMPRESSION: THERE IS NO MAMMOGRAPHIC EVIDENCE OF MALIGNANCY. A ROUTINE FOLLOW-UP MAMMOGRAM IN 1 YEAR IS RECOMMENDED. THE RESULTS OF THIS EXAM WERE SENT TO THE PATIENT. ACR BI-RADS Category 2 - Benign finding MAMMOGRAPHY NOTE: 1. A negative mammogram report should not delay a biopsy if a dominant of clinically suspicious mass is present. 2. Approximately 10% to 15% of breast cancers are not detected by mammography. 3. Adenosis and dense breasts may obscure an underlying neoplasm. Reported by: KRISTOPHER ALEGRE MD Electonically Signed: [id number]
== END 2020-04-13 15:38 | disposition home or self-care (01) ==
LOC: BICMAMMO 15:37
PROVIDERS: ATTEND Physician Assistant
DX: Z12.31 Encounter for screening mammogram for malignant neoplasm of breast (principal); Z80.3 Family history of malignant neoplasm of breast
CPT/HCPCS: 77063; 77067

== ENCOUNTER 2021-03-25 09:10 | Emergency (ER) | payer BC ==
[2021-03-25] MEDS ORDERED: Diltiazem 125 MG/25 ML ONE (09:46)
[2021-03-25 10:10] LABS: #Basophils 0.1 thou/uL (0.0-0.2); #Eosinphils 0.3 thou/uL (0.0-0.7); #Lymphocytes 2.2 thou/uL (1.20-3.40); #Monocytes 0.8 thou/uL (0.11-0.59); #Neutrophils 4.5 thou/uL (1.40-6.50); %Basophils 0.9 % (0.0-1.0); %Eosinophils 3.4 % (0.0-10.0); %Lymphocytes 27.7 % (21.0-51.0); %Monocytes 10.8 % (0.0-10.0); %Neutrophils 57.2 % (42.0-75.0); Mean Corpuscular Hemoglobin 30.3 pg (27.0-31.0); Mean Corpuscular Volume 94.5 fL (78.0-98.0); Mean Platelet Volume 7.2 fL (7.4-10.4); Platelet Count 220 thou/uL (130-400); RBC Distribution Width 13.1 % (11.5-14.5); Red Blood Cell (RBC) Count 4.29 mill/uL (4.20-5.40); White Blood Cell (WBC) Count 7.8 thou/uL (4.8-10.8)
[2021-03-25 10:31] LABS: ALT (SGPT) 22 U/L (8-55); AST (SGOT) 23 U/L (5-34); Albumin 4.3 g/dL (3.5-5.0); Alkaline Phosphatase 87 U/L (40-110); Anion Gap 13 mmol/L (10-20); BUN (Urea Nitrogen) 19 mg/dL (9.8-20.1); Bilirubin, Total 0.8 mg/dL (0.2-1.2); Calc. Creatinine Clearance 0 mL/min (70-130); Calcium 9.6 mg/dL (7.8-10.44); Carbon Dioxide 26 mmol/L (22-29); Chloride 103 mmol/L (98-107); Globulin 3.5 g/dL (2.4-3.5); Glucose 122 mg/dL (70-105); Potassium 3.9 mmol/L (3.5-5.1); Protein, Total 7.8 g/dL (6.0-8.3); Sodium 138 mmol/L (136-145)
== END 2021-03-25 11:26 | disposition home or self-care (01) ==
LOC: ERS 09:10
DX: I47.1 Supraventricular tachycardia (principal); I10 Essential (primary) hypertension; E11.9 Type 2 diabetes mellitus without complications; F17.210 Nicotine dependence, cigarettes, uncomplicated; Z79.82 Long term (current) use of aspirin
CPT/HCPCS: 36415; 71045; 80053; 84484; 85025; 93005; 96374

== ENCOUNTER 2021-04-08 08:33 | Emergency (ER) | payer BC ==
[2021-04-08 09:16] LABS: #Basophils 0.1 thou/uL (0.0-0.2); #Eosinphils 0.3 thou/uL (0.0-0.7); #Lymphocytes 2.3 thou/uL (1.20-3.40); #Monocytes 0.6 thou/uL (0.11-0.59); #Neutrophils 4.6 thou/uL (1.40-6.50); %Basophils 0.6 % (0.0-1.0); %Lymphocytes 29.1 % (21.0-51.0); %Monocytes 7.7 % (0.0-10.0); %Neutrophils 58.5 % (42.0-75.0); Hemoglobin 13.7 g/dL (12.0-16.0); Mean Corpuscular HGB CONC 32.8 g/dL (32.0-36.0); Mean Corpuscular Volume 94.3 fL (78.0-98.0); Mean Platelet Volume 7.5 fL (7.4-10.4); Platelet Count 242 thou/uL (130-400); Red Blood Cell (RBC) Count 4.44 mill/uL (4.20-5.40); White Blood Cell (WBC) Count 7.9 thou/uL (4.8-10.8)
[2021-04-08 09:37] LABS: ALT (SGPT) 21 U/L (8-55); AST (SGOT) 23 U/L (5-34); Albumin 4.4 g/dL (3.5-5.0); Alkaline Phosphatase 94 U/L (40-110); Anion Gap 14 mmol/L (10-20); BUN (Urea Nitrogen) 20 mg/dL (9.8-20.1); Bilirubin, Total 0.6 mg/dL (0.2-1.2); Calc. Creatinine Clearance 0 mL/min (70-130); Calcium 9.7 mg/dL (7.8-10.44); Carbon Dioxide 25 mmol/L (22-29); Chloride 102 mmol/L (98-107); Glucose 166 mg/dL (70-105); Potassium 3.8 mmol/L (3.5-5.1); Protein, Total 8.4 g/dL (6.0-8.3); Sodium 137 mmol/L (136-145)
== END 2021-04-08 10:55 | disposition home or self-care (01) ==
LOC: ERS 08:33
DX: I47.1 Supraventricular tachycardia (principal); E11.9 Type 2 diabetes mellitus without complications; I10 Essential (primary) hypertension; Z87.891 Personal history of nicotine dependence
CPT/HCPCS: 71045; 80053; 84484; 85025; 93005; 94760; 96374

== ENCOUNTER 2021-05-11 14:38 | Outpatient (CLI) | payer BC ==
[2021-05-11 15:16] LABS: Hemoglobin 12.7 g/dL (12.0-15.5); Mean Corpuscular HGB CONC 32.5 g/dL (32.0-36.0); Mean Corpuscular Hemoglobin 29.5 pg (27.0-33.0); Mean Corpuscular Volume 90.9 fl (81.6-98.3); Mean Platelet Volume 9.6 fl (7.4-10.4); Platelet Count 253 10x3/uL (150-450); RBC Distribution Width 14.1 % (11.5-14.5); White Blood Cell (WBC) Count 8.8 10x3/uL (3.5-10.5)
[2021-05-11 15:32] LABS: Prothrombin Time 10.6 sec (9.5-12.1)
[2021-05-11 15:34] LABS: Anion Gap 16 mmol/L (10-20); BUN (Urea Nitrogen) 20 mg/dL (9.8-20.1); Calc. Creatinine Clearance 0 mL/min (70-130); Calcium 9.9 mg/dL (7.8-10.44); Carbon Dioxide 26 mmol/L (22-29); Chloride 102 mmol/L (98-107); Glucose 110 mg/dL (70-105); Potassium 3.9 mmol/L (3.5-5.1); Sodium 140 mmol/L (136-145)
[2021-05-11 22:06] LABS: SARS-CoV-2 PCR by NAA Not Detected (NotDetected)
== END 2021-05-11 14:39 | disposition home or self-care (01) ==
LOC: LABBT 14:38
PROVIDERS: ATTEND Internal Medicine Cardiovascular Disease
DX: Z01.812 Encounter for preprocedural laboratory examination (principal); I47.1 Supraventricular tachycardia; Z20.822 Contact with and (suspected) exposure to COVID-19
CPT/HCPCS: 80048; 85027; 85610; 85730; U0003; U0005

== ENCOUNTER → 2021-05-16 | Day surgery (SDC) | payer BC ==
[2021-05-09 15:55] VITALS: BMI 29.9
[~2021-05-16] MED LIST: DOPamine 400 MG/D5W 250 ML 0 ML ONE; Fentanyl 250 MCG/5 ML VIAL ONE; Heparin 10,000 UNITS/ 10 ML VIAL ONE; Isoproterenol 0.2 MG/1 ML AMP ONE; Lidocaine 1% (PF) 30 ML VIAL ONE; Lidocaine 1% PF 5 ML VIAL ONE; Midazolam HCl 2 mg/2 ml Vial ONE; PHENYLEPHRINE-NS 100 MCG/ML 10 ML SYRINGE ONE; PROPOFOL 200 MG/20 ML VIAL ONE; PROPOFOL 40 ML ONE; Propofol 500 MG/50 ML VIAL ONE
== END ==
LOC: SDC 05:46
PROVIDERS: ATTEND Internal Medicine Cardiovascular Disease
PROC: 02K83ZZ Map Conduction Mechanism, Percutaneous Approach (ICD-10-PCS; principal; 2021-05-16)
PROC: 4A023FZ Measurement of Cardiac Rhythm, Percutaneous Approach (ICD-10-PCS; principal; 2021-05-16)
PROC: 4A0234Z Measurement of Cardiac Electrical Activity, Percutaneous Approach (ICD-10-PCS; principal; 2021-05-16)
PROC: 02583ZZ Destruction of Conduction Mechanism, Percutaneous Approach (ICD-10-PCS; principal; 2021-05-16)
DX: I47.1 Supraventricular tachycardia (principal); I48.91 Unspecified atrial fibrillation; I08.1 Rheumatic disorders of both mitral and tricuspid valves; E11.9 Type 2 diabetes mellitus without complications; I11.9 Hypertensive heart disease without heart failure; Z87.891 Personal history of nicotine dependence; Z79.82 Long term (current) use of aspirin; Z79.899 Other long term (current) drug therapy
CPT/HCPCS: 93005; C1730; C1732; C1776; J1265; J1644; J2001; J2250; J2704; J3010

== ENCOUNTER 2021-12-05 09:15 | Outpatient (CLI) | payer BC | END 2021-12-05 09:16 | disposition home or self-care (01) | LOC: BICRAD 09:15 | PROVIDERS: ATTEND Nurse Practitioner Family | DX: M25.572 Pain in left ankle and joints of left foot (principal); M79.89 Other specified soft tissue disorders ==

== ENCOUNTER 2022-01-09 15:00 | Outpatient (CLI) | payer BC | END 2022-01-09 15:01 | disposition home or self-care (01) | LOC: BICMAMMO 15:00 | PROVIDERS: ATTEND Nurse Practitioner Family | DX: Z12.31 Encounter for screening mammogram for malignant neoplasm of breast (principal); Z80.3 Family history of malignant neoplasm of breast; Z98.82 Breast implant status | CPT/HCPCS: 77063; 77067 ==

== ENCOUNTER 2022-10-27 05:41 | Day surgery (SDC) | payer BC ==
[2022-10-25 16:02] VITALS: BMI 44.9
[2022-10-27] MEDS ORDERED: Bupivacaine PF 0.5% 30 ML VIAL ONE (06:17)
[2022-10-27] MEDS ORDERED: Bacitracin Zinc Ointment 30 gm TUBE ONE (06:17)
[2022-10-27] MEDS ORDERED: Ketorolac Tromethamine 30 MG/ML VIAL ONE (06:45)
[2022-10-27] MEDS ORDERED: Lidocaine 1% PF 5 ML VIAL ONE (06:45)
[2022-10-27] MEDS ORDERED: diphenhydrAMINE 50 MG/ML VIAL ONE (06:45)
[2022-10-27] MEDS ORDERED: Ondansetron PF 4 MG/2 ML Vial ONE (06:45)
[2022-10-27] MEDS ORDERED: PROPOFOL 200 MG/20 ML VIAL ONE (06:45)
[2022-10-27] MEDS ORDERED: CEFAZOLIN 2 GM VIAL ONE (06:59)
[2022-10-27] MEDS ORDERED: Sodium Chloride 0.9% 100 ML ONE (06:59)
[2022-10-27] MEDS ORDERED: Lidocaine 2% 6 ML (Jelly) SYR ONE (07:00)
[2022-10-27] MEDS ORDERED: fentaNYL PF 100 MCG/2 ML SYRINGE ONE (07:00)
== END 2022-10-27 10:32 | disposition home or self-care (01) ==
LOC: SDC 05:41
PROVIDERS: ATTEND Orthopaedic Surgery Hand Surgery
PROC: 01N53ZZ Release Median Nerve, Percutaneous Approach (ICD-10-PCS; principal; 2022-10-27)
PROC: 0LN80ZZ Release Left Hand Tendon, Open Approach (ICD-10-PCS; principal; 2022-10-27)
DX: G56.03 Carpal tunnel syndrome, bilateral upper limbs (principal); M65.332 Trigger finger, left middle finger; E11.9 Type 2 diabetes mellitus without complications; M06.9 Rheumatoid arthritis, unspecified; I10 Essential (primary) hypertension; I47.1 Supraventricular tachycardia; Z79.899 Other long term (current) drug therapy
CPT/HCPCS: A6448; J1200; J1885; J2405; J2704; J3490; S0020

== ENCOUNTER 2023-01-09 07:37 | Outpatient (CLI) | payer BC | END 2023-01-09 07:38 | disposition home or self-care (01) | LOC: BICCT 07:37 | PROVIDERS: ATTEND Internal Medicine | DX: C18.9 Malignant neoplasm of colon, unspecified (principal) | CPT/HCPCS: 74177; 82565 ==

== ENCOUNTER 2023-01-10 15:30 | Outpatient (CLI) | payer BC | END 2023-01-10 15:31 | disposition home or self-care (01) | LOC: BICMAMMO 15:30 | PROVIDERS: ATTEND Nurse Practitioner Family | DX: Z12.31 Encounter for screening mammogram for malignant neoplasm of breast (principal); Z80.3 Family history of malignant neoplasm of breast; Z98.82 Breast implant status | CPT/HCPCS: 77063; 77067 ==

== ENCOUNTER 2023-01-31 11:17 | Outpatient (CLI) | payer BC ==
[2023-01-31 12:09] LABS: #Eosinphils 0.1 10x3/uL (0.0-0.5); #Monocytes 0.5 10x3/uL (0.0-1.1); %Basophils 0.4 % (0.0-2.0); %Eosinophils 1.3 % (0.0-6.0); %Lymphocytes 29.5 % (18.0-47.0); %Monocytes 7.9 % (0.0-10.0); %Neutrophils 60.8 % (40.0-75.0); Hematocrit 35.9 % (34.9-44.5); Hemoglobin 11.7 g/dL (12.0-15.5); Mean Corpuscular HGB CONC 32.6 g/dL (32.0-36.0); Mean Corpuscular Hemoglobin 28.3 pg (27.0-33.0); Mean Corpuscular Volume 86.7 fl (81.6-98.3); Mean Platelet Volume 9.1 fl (7.4-10.4); Platelet Count 342 10x3/uL (150-450); RBC Distribution Width 14.6 % (11.5-14.5); Red Blood Cell (RBC) Count 4.14 10x6/uL (3.90-5.03); White Blood Cell (WBC) Count 6.7 10x3/uL (3.5-10.5)
[2023-01-31 12:23] LABS: Anion Gap 11 mmol/L (10-20); BUN (Urea Nitrogen) 13 mg/dL (9.8-20.1); Calc. Creatinine Clearance 0 mL/min (70-130); Calcium 9.3 mg/dL (7.8-10.44); Carbon Dioxide 26 mmol/L (22-29); Chloride 103 mmol/L (98-107); Estimated GFR 82; Glucose 124 mg/dL (70-105); Potassium 3.4 mmol/L (3.5-5.1); Sodium 137 mmol/L (136-145)
[2023-01-31 16:49] LABS: Hemoglobin A1c 6.5 % (4.0-6.0)
== END 2023-01-31 11:18 | disposition home or self-care (01) ==
LOC: LABBT 11:17
PROVIDERS: ATTEND Surgery
DX: Z01.818 Encounter for other preprocedural examination (principal); C18.2 Malignant neoplasm of ascending colon
CPT/HCPCS: 80048; 83036; 85025; 93005; 93010

== ENCOUNTER 2023-01-31 11:30 | Inpatient (IN) | payer BC ==
[2023-02-06] MEDS ORDERED: Sodium Chloride 0.9% 100 ML ONE (11:36)
[2023-02-06] MEDS ORDERED: Lidocaine 1% MPF 2 ML VIAL ONE (11:36)
[2023-02-06] MEDS ORDERED: cefOXitin 2 GM VIAL ONE ×2 (11:36→16:48)
[2023-02-06] MEDS ORDERED: Midazolam HCl 2 mg/2 ml Vial ONE (12:41)
[2023-02-06] MEDS ORDERED: fentaNYL 50 mcg/mL 1 mL Vial ONE ×3 (12:41→19:55)
[2023-02-06] MEDS ORDERED: Bupivacaine 0.25% HCL 30 ML VIAL ONE ×2 (12:42→14:25)
[2023-02-06] MEDS ORDERED: Indocyanine Green 25 MG/10 ML VIAL ONE (14:24)
[2023-02-06] MEDS ORDERED: EPINEPHrine 1 MG/ML VIAL ONE (14:24)
[2023-02-06] MEDS ORDERED: PROPOFOL 20 ML ONE (14:54)
[2023-02-06] MEDS ORDERED: fentaNYL PF 100 MCG/2 ML SYRINGE ONE ×2 (14:58→17:52)
[2023-02-06] MEDS ORDERED: Dexamethasone 4 mg/ml Vial ONE (14:58)
[2023-02-06] MEDS ORDERED: SUGAMMADEX SODIUM 200 MG/2 ML VIAL ONE (14:58)
[2023-02-06] MEDS ORDERED: Ondansetron PF 4 MG/2 ML Vial ONE ×3 (14:58→18:17)
[2023-02-06] MEDS ORDERED: Rocuronium Bromide 10 MG/ML (10ML VIAL) ONE ×2 (14:58→15:02)
[2023-02-06] MEDS ORDERED: Lidocaine 1% PF 5 ML VIAL ONE ×2 (14:58→15:02)
[2023-02-06] MEDS ORDERED: PROPOFOL 40 ML ONE (14:58)
[2023-02-06] MEDS ORDERED: PHENYLEPHRINE-NS 100 MCG/ML 10 ML SYRINGE ONE ×2 (15:02→15:21)
[2023-02-06] MEDS ORDERED: PROPOFOL 200 MG/20 ML VIAL ONE (15:02)
[2023-02-06] MEDS ORDERED: Dexamethasone 20 MG/5 ML VIAL ONE (15:02)
[2023-02-06] MEDS ORDERED: Glycopyrrolate 0.2 MG/ML 5 ML SYRINGE ONE (15:24)
[2023-02-06] MEDS ORDERED: Ondansetron HCl/PF 4 MG/2 ML Vial IVP PRN ×2 (15:41→17:44)
[2023-02-06] MEDS ORDERED: Ketorolac Tromethamine 30 MG/ML VIAL IVP PRN (15:41)
[2023-02-06] MEDS ORDERED: Promethazine HCl 25 MG/ML VIAL IM PRN ×3 (15:41→17:54)
[2023-02-06] MEDS ORDERED: HYDROmorphone 2 MG/ML VIAL SLOW IVP PRN ×2 (15:41→17:44)
[2023-02-06] MEDS ORDERED: Ipratropium/Albuterol 3 ML NEB NEB PRN (17:54)
[2023-02-06] MEDS ORDERED: hydrALAZINE 20 MG/ML VIAL SLOW IVP PRN (17:54)
[2023-02-06] MEDS ORDERED: Dextrose 5% in Water 1,000 ML IV PRN (17:54)
[2023-02-06] MEDS ORDERED: Gabapentin 300 MG CAP PO PRN (17:54)
[2023-02-06] MEDS ORDERED: Glucagon 1 MG/ML KIT IM PRN (17:54)
[2023-02-06] MEDS ORDERED: Ondansetron PF 4 MG/2 ML Vial IVP PRN (17:54)
[2023-02-06] MEDS ORDERED: HYDROcodone/Acetaminophen 7.5/325 mg Tablet PO PRN (17:54)
[2023-02-06] MEDS ORDERED: HumaLOG 300 UNITS/3 ML VIAL SC PRN (17:54)
[2023-02-06] MEDS ORDERED: Dextrose 50% Abboject 50 ML SYRINGE SLOW IVP PRN (17:54)
[2023-02-06] MEDS ORDERED: HYDROmorphone 0.5 MG/0.5 ML SYRINGE ONE ×2 (18:14→18:27)
[2023-02-06] MEDS: D5 1/2 NS w/20 mEq KCL 1,000 ML IV SCH ×2 (19:17→21:04)
[2023-02-06] MEDS: Famotidine 20 MG TAB PO SCH (21:03)
[2023-02-06] MEDS: Famotidine/PF 20 mg/2ml Vial SLOW IVP SCH (21:03)
[2023-02-06] MEDS: HYDROcodone/Acetaminophen 7.5/325 mg Tablet PO PRN (21:04)
[2023-02-06 21:58] VITALS: BMI 30.9
[2023-02-06] MEDS: cefOXitin 2 GM in Sodium Chloride 0.9% 100 ML IVPB SCH (23:24)
[2023-02-06] MEDS: Fentanyl 100 MCG/2 ML VIAL SLOW IVP PRN (23:28)
[2023-02-07] MEDS: Fentanyl 100 MCG/2 ML VIAL SLOW IVP PRN ×4 (02:36→20:33)
[2023-02-07] MEDS: D5 1/2 NS w/20 mEq KCL 1,000 ML IV SCH ×4 (05:23→21:00)
[2023-02-07 06:15] LABS: #Monocytes 0.7 thou/uL (0.11-0.59); #Neutrophils 7.7 thou/uL (1.40-6.50); %Basophils 0.2 % (0.0-1.0); %Lymphocytes 11.4 % (21.0-51.0); %Monocytes 7.4 % (0.0-10.0); %Neutrophils 80.7 % (42.0-75.0); Hematocrit 34.2 % (36.0-47.0); Mean Corpuscular HGB CONC 32.2 g/dL (32.0-36.0); Mean Corpuscular Hemoglobin 28.1 pg (27.0-31.0); Mean Corpuscular Volume 87.2 fl (78.0-98.0); Mean Platelet Volume 9.9 fL (7.4-10.4); Platelet Count 240 10x3/uL (130-400); RBC Distribution Width 14.6 % (11.5-14.5); Red Blood Cell (RBC) Count 3.92 mill/uL (4.20-5.40); White Blood Cell (WBC) Count 9.5 10x3/uL (4.8-10.8)
[2023-02-07 06:43] LABS: Anion Gap 12 mmol/L (10-20); BUN (Urea Nitrogen) 5 mg/dL (9.8-20.1); Calc. Creatinine Clearance 101 mL/min (70-130); Calcium 8.9 mg/dL (7.8-10.44); Carbon Dioxide 26 mmol/L (22-29); Chloride 102 mmol/L (98-107); Estimated GFR 83; Glucose 200 mg/dL (70-105); Potassium 3.7 mmol/L (3.5-5.1); Sodium 136 mmol/L (136-145)
[2023-02-07] MEDS: Lisinopril 20 MG TAB PO SCH (08:53)
[2023-02-07] MEDS: Famotidine 20 MG TAB PO SCH ×2 (08:53→20:30)
[2023-02-07] MEDS: Hydrochlorothiazide 25 MG TAB PO SCH (08:53)
[2023-02-07] MEDS: cefOXitin 2 GM in Sodium Chloride 0.9% 100 ML IVPB SCH (08:54)
[2023-02-07] MEDS: Famotidine/PF 20 mg/2ml Vial SLOW IVP SCH ×2 (08:54→20:36)
[2023-02-07] MEDS ORDERED: Hydrocortisone 2.5% Cream 30 GM TUBE TOP PRN (09:00)
[2023-02-08] MEDS: Fentanyl 100 MCG/2 ML VIAL SLOW IVP PRN (01:16)
[2023-02-08 07:41] VITALS: BP 136/88; TEMP 99
[2023-02-08] MEDS: Lisinopril 20 MG TAB PO SCH (08:56)
[2023-02-08] MEDS: Famotidine/PF 20 mg/2ml Vial SLOW IVP SCH (08:56)
[2023-02-08] MEDS: Famotidine 20 MG TAB PO SCH (08:56)
[2023-02-08] MEDS: Hydrochlorothiazide 25 MG TAB PO SCH (08:56)
[2023-02-08] MEDS: HYDROcodone/Acetaminophen 7.5/325 mg Tablet PO PRN (11:16)
== END 2023-02-08 13:15 | disposition home or self-care (01) | DRG 330 ==
LOC: SURG A 02-06 11:10 → SJJU 02-06 20:07
PROVIDERS: ADMIT Surgery; ATTEND Surgery
PROC: 0DBK4ZZ Excision of Ascending Colon, Percutaneous Endoscopic Approach (ICD-10-PCS; principal; 2023-02-06)
PROC: 8E0W4CZ Robotic Assisted Procedure of Trunk Region, Percutaneous Endoscopic Approach (ICD-10-PCS; 2023-02-06)
PROC: 3E033XZ Introduction of Vasopressor into Peripheral Vein, Percutaneous Approach (ICD-10-PCS; 2023-02-06)
DX: C18.2 Malignant neoplasm of ascending colon (principal); C18.3 Malignant neoplasm of hepatic flexure; E11.9 Type 2 diabetes mellitus without complications; I10 Essential (primary) hypertension; Z98.890 Other specified postprocedural states; Z80.0 Family history of malignant neoplasm of digestive organs; Z79.899 Other long term (current) drug therapy; Z87.891 Personal history of nicotine dependence; Z82.49 Family history of ischemic heart disease and other diseases of the circulatory system; Z83.3 Family history of diabetes mellitus
CPT/HCPCS: 36415; 36416; 80048; 85025; 88309; A4314; J0171; J0694; J1100; J1170; J1650; J2250; J2405; J2704; J3010; J3480; J3490; S0020; S0028